=== PATIENT | female | born 1970 | race Caucasian/White ===

== ENCOUNTER 2017-05-17 14:03 | Observation (INO) | payer BC ==
[2017-05-17 14:14] VITALS: BMI 28.1
[2017-05-17] MEDS ORDERED: IBUPROFEN 600 MG TABLET (FP) PO ONE ×2 (14:47→14:57)
[2017-05-17 15:36] LABS: BASO # 0.1 # (0.1-1); BASO % 0.9 % (0-2.0); EOS # 0.3 # (0-4.5); EOS % 3.4 % (0-4.5); LYMPH # 1.8 (8-40); MCH 23.4 pg (25.7-33.7); MCHC 32.1 g/dl (32.0-36.0); MEAN CELL VOLUME 72.9 fl (80-96); MEAN PLT VOLUME 7.8 fl (7.5-11.1); MONO # 0.8 # (3.8-10.2); NEUT # 4.9 # (42.8-82.8); NEUT % 62.5 % (42.8-82.8); PLATELET COUNT 433 K/MM3 (134-434); RDW 15.8 % (11.6-15.6); WHITE BLOOD COUNT 7.8 K/mm3 (4.0-10.0)
--- NOTE | 2017-05-17 15:44 | PDOC ---
History of Present Illness - General Chief Complaint: Chest Pain Stated Complaint: SENT BY PCP Time Seen by Provider: 05/17/17 14:28 - History of Present Illness Initial Comments: 05/17/17 15:33 "The patient is a 46 year old female, with no significant past medical history who was sent to the emergency department with chest pain and SOB since yesterday. The patient reports waking up with the onset of chest pain. She notes yesterday her pain was constant but now her pain is intermittent in nature. She reports her chest pain is often made worse on exertion. She notes having left arm heaviness and facial tingling. Denies any asymmetric leg swelling, denies recent travel/immobilization. She denies recent fevers, chills , or dizziness. She denies recent nausea, vomit, diarrhea or constipation. She denies recent dysuria, frequency, urgency or hematuria. Pt also endorse mild left sided headache that started today. Similar in character and severity to headaches she has had in the past. No thunderclap, no neck stiffness. No F/C. Allergies: NKA Past surgical history: None reported. Social history: Nonsmoker. Denies EtOH use and recreational drug use. Family history: Uncle [place] at 43, sister has stents. Past History - Past Medical History Allergies/Adverse Reactions: Allergies Allergy/AdvReac Type Severity Reaction Status Date / Time No Known Allergies Allergy Verified 05/17/17 14:14 Home Medications: Ambulatory Orders Ibuprofen [Motrin -] 600 mg PO TID PRN #30 tablet 03/24/13 Levothyroxine [Synthroid -] 175 mcg PO DAILY 03/24/13 COPD: No Thyroid Disease: Yes (HYPOTHROIDISM) - Suicide/Smoking/Psychosocial Hx Smoking Status: No Smoking History: Former smoker Have you smoked in the past 12 months: No Number of Cigarettes Smoked Daily: 0 If you are a former smoker, when did you quit?: 10 YEARS AGO Information on smoking cessation initiated: No Hx Alcohol Use: No Drug/Substance Use Hx: No Review of Systems - Review of Systems Comments:: 05/17/17 15:44 "GENERAL/CONSTITUTIONAL: No fever or chills. No weakness. HEAD, EYES, EARS, NOSE AND THROAT: No change in vision. No ear pain or discharge. No sore throat. CARDIOVASCULAR: +chest pain and shortness of breath. RESPIRATORY: No cough, wheezing, or hemoptysis. GASTROINTESTINAL: No nausea, vomiting, diarrhea or constipation. GENITOURINARY: No dysuria, frequency, or change in urination. MUSCULOSKELETAL: No joint or muscle swelling or pain. No neck or back pain. SKIN: No rash NEUROLOGIC: +headache No vertigo, loss of consciousness, or change in strength/ sensation. ENDOCRINE: No increased thirst. No abnormal weight change. HEMATOLOGIC/LYMPHATIC: No anemia, easy bleeding, or history of blood clots. ALLERGIC/IMMUNOLOGIC: No hives or skin allergy. " *Physical Exam - Vital Signs Last Vital Signs Temp Pulse Resp BP Pulse Ox 98.8 F 74 147/92 100 05/17/17 14:11 05/17/17 14:11 05/17/17 14:11 05/17/17 14:11 - Physical Exam Comments: 05/17/17 15:45 "GENERAL: Awake, alert, and fully oriented, in no acute distress HEAD: No signs of trauma EYES: PERRLA, EOMI, sclera anicteric, conjunctiva clear ENT: Auricles normal inspection, hearing grossly normal, nares patent, oropharynx clear without exudates. Moist mucosa NECK: Nontender, no stepoffs, Normal ROM, supple, no lymphadenopathy, JVD, or masses LUNGS: Breath sounds equal, clear to auscultation bilaterally. No wheezes, and no crackles HEART: Regular rate and rhythm, normal S1 and S2, no murmurs, rubs or gallops ABDOMEN: Soft, nontender, normoactive bowel sounds. No guarding, no rebound. No masses EXTREMITIES: Normal range of motion, no edema. No clubbing or cyanosis. No cords , erythema, or tenderness NEUROLOGICAL: Cranial nerves II through XII intact. 5/5 strength and sensation in all extremities, Normal speech, normal gait SKIN: Warm, Dry, normal turgor, no rashes or lesions noted. " Heart Score/ECG Review - History History: Moderately suspicious - Electrocardiogram EKG: Normal - Age Age: </= 45 - Risk Factors Risk Factors Heart Score: Yes Positive family hx of cardiac disease Based on the list above the patient has:: 1-2 risk factors - Troponin Troponin: </= normal limit - Score Heart Score - Total: 2 - ECG Impressions Comment:: 05/17/17 15:45 NSR, no JANNET/STDs, no TWIs, axis wnl, intervals wnl, rate 74 ED Treatment Course - LABORATORY CBC & Chemistry Diagram: 05/17/17 15:20 05/17/17 15:20 - ADDITIONAL ORDERS Additional order review: Laboratory Results 05/17/17 05/17/17 05/17/17 15:20 15:20 15:20 Sodium 138 Potassium 4.3 Chloride 104 Carbon Dioxide 27 Anion Gap 7 L BUN 10 Creatinine 0.7 Creat Clearance w eGFR > 60 Random Glucose 85 Calcium 8.2 L Total Bilirubin 0.2 AST 14 L ALT 23 Alkaline Phosphatase 88 Creatine Kinase 68 Troponin I < 0.02 B-Natriuretic Peptide 35.07 Total Protein 7.4 Albumin 3.6 Urine HCG, Qual Negative 05/17/17 15:20 Sodium Potassium Chloride Carbon Dioxide Anion Gap BUN Creatinine Creat Clearance w eGFR Random Glucose Calcium Total Bilirubin AST ALT Alkaline Phosphatase Creatine Kinase Cancelled Troponin I Cancelled B-Natriuretic Peptide Total Protein Albumin Urine HCG, Qual 05/17/17 15:20 RBC 4.47 MCV 72.9 L MCHC 32.1 RDW 15.8 H MPV 7.8 Neutrophils % 62.5 Lymphocytes % 22.7 Monocytes % 10.5 H Eosinophils % 3.4 Basophils % 0.9 - RADIOLOGY Radiology Studies Ordered: Category Date Time Status CHEST PA & LAT [RAD] Stat Radiology 05/17/17 14:42 Completed - Medications Given in the ED: ED Medications Discontinued Medications Generic Name Dose Route Start Last Admin Trade Name Freq PRN Reason Stop Dose Admin Ibuprofen 600 mg 05/17/17 14:47 05/17/17 15:19 Motrin - PO 05/17/17 14:48 600 mg ONCE ONE Administration Medical Decision Making - Medical Decision Making 05/17/17 15:46 46 F with exertional CP and SOB x 2 days. Concerning for ACS given exertional nature and pt's family history of CAD. However, pt has no other risk factors and normal EKG. HEART score is 3. Pt does not have any PE risk factors, PERC score 0. - Labs, trop x 2 - CXR - Motrin for headache 05/17/17 18:[address] Ngo, manager of transportation who sent pt in today. Given pt's significant family history, she recommends admission for stress testing tomorrow. *DC/Admit/Observation/Transfer Diagnosis at time of Disposition: Chest pain - Discharge Dispostion Admit: Yes - Referrals - Patient Instructions - Post Discharge Activity - Attestations Physician Attestion: 05/17/17 18:57 I, Dr. Joey Corea MD, attest that this document has been prepared under my direction and personally reviewed by me in its entirety. I further attest, that it accurately reflects all work, treatment, procedures and medical decision -making performed by me.
[2017-05-17 16:09] LABS: ALBUMIN 3.6 g/dl (3.4-5.0); ANION GAP 7 (8-16); BILIRUBIN,TOTAL 0.2 mg/dL (0.2-1.0); CALCIUM 8.2 mg/dL (8.5-10.1); CO2 27 mmol/L (21-32); CREATININE 0.7 mg/dL (0.55-1.02); GLUCOSE,RANDOM 85 mg/dL (74-106); SGOT/AST 14 U/L (15-37); SGPT/ALT 23 U/L (12-78); TOT PROT 7.4 g/dl (6.4-8.2)
[2017-05-17 16:11] LABS: ALK PHOS 88 U/L (45-117); CPK 68 IU/L (26-192); TROPONIN I < 0.02 ng/ml (0.00-0.05)
--- NOTE | 2017-05-17 19:24 | HP ---
CHIEF COMPLAINT: " Chest pain" PCP: Looking for a new PCP President & Founder: Dr. Chandler Cnc Field Service Engineer: Dr. Ngo. HISTORY OF PRESENT ILLNESS: Patient is a 46 year old female sent from Dr. Ngo's office after she complained of chest pain. Patient also has extensive family cardiac history hence was sent to the ED for further evaluation. As per the patient, she was apparently well until 2 days ago. She suddenly started to develop chest pain, located in the left side, constant pressure type feeling all day yesterday and on/off today, radiating towards the neck, 6/10 in intensity. Patient also reports to have noticed left arm heaviness, associated with palpitation. This is her first episode of chest pain. Denies nausea, vomiting, fever, chills, rigors, sweating, any trauma, abdominal pain. Bowel/Bladder habit normal. Sleep/Appetite normal. ER course was notable for: (1) Afebrile, hypertensive, troponin x 1 negative, anemia, (2) EKG: Normal Sinus (3) Motrin 600mg once Recent Travel: None MENTRUAL HISTORY: LMP 05/15/2017, regular, lasting for 4-5 days, uses 3-4 tampons/day. PAST MEDICAL HISTORY: Hypothyroidism PAST SURGICAL HISTORY: None Social History: Smoking: Former smoker, stopped smoking 10 yrs ago, smoked 1 pack for 15 years Alcohol: Occasional Drugs: Denies Family History: Mother- CAD s/p stent at age 50 yrs; HTN, DM; Father-HTN, DM; Aunt-Stroke at age 44 and Uncle of [place] at age 43. Allergies No Known Allergies Allergy (Verified 05/17/17 14:14) HOME MEDICATIONS: Home Medications Medication Instructions Recorded Ibuprofen [Motrin -] 600 mg PO TID PRN #30 tablet 03/24/13 Levothyroxine [Synthroid -] 175 mcg PO DAILY 03/24/13 REVIEW OF SYSTEMS CONSTITUTIONAL: Absent: fever, chills, diaphoresis, generalized weakness, malaise, loss of appetite, weight change HEENT: Absent: rhinorrhea, nasal congestion, throat pain, throat swelling, difficulty swallowing, mouth swelling, ear pain, eye pain, visual changes CARDIOVASCULAR: Present: Chest pain, palpitations. Absent: syncope, irregular heart rate, lightheadedness, peripheral edema RESPIRATORY: Absent: cough, shortness of breath, dyspnea with exertion, orthopnea, wheezing, stridor, hemoptysis GASTROINTESTINAL: Absent: abdominal pain, abdominal distension, nausea, vomiting, diarrhea, constipation, melena, hematochezia GENITOURINARY: Absent: dysuria, frequency, urgency, hesitancy, hematuria, flank pain, genital pain MUSCULOSKELETAL: Absent: myalgia, arthralgia, joint swelling, back pain, neck pain SKIN: Absent: rash, itching, pallor HEMATOLOGIC/IMMUNOLOGIC: Absent: easy bleeding, easy bruising, lymphadenopathy, frequent infections ENDOCRINE: Absent: unexplained weight gain, unexplained weight loss, heat intolerance, cold intolerance NEUROLOGIC: Absent: headache, focal weakness or paresthesias, dizziness, unsteady gait, seizure, mental status changes, bladder or bowel incontinence PSYCHIATRIC: Absent: anxiety, depression, suicidal or homicidal ideation, hallucinations. PHYSICAL EXAMINATION Vital Signs - 24 hr 05/17/17 14:11 Temperature 98.8 F Pulse Rate 74 Blood Pressure 147/92 O2 Sat by Pulse 100 Oximetry (%) GENERAL: Young female, comfortably sitting in bed, Awake, alert, and fully oriented, in no acute distress. HEAD: Normal with no signs of trauma. EYES: EOM intact, no pallor or icterus. EARS, NOSE, THROAT: Ears normal. Moist mucous membranes. NECK: Normal range of motion, supple without lymphadenopathy, JVD, or masses. LUNGS: Breath sounds equal, clear to auscultation bilaterally. No wheezes, and no crackles. No accessory muscle use. Chest: No rashes, pain non reproducible. HEART: Regular rate and rhythm, normal S1 and S2 without murmur. ABDOMEN: Soft, nontender, not distended, normoactive bowel sounds, no guarding, no rebound, no masses. No hepatomegaly or splenomegaly. MUSCULOSKELETAL: Normal range of motion at all joints. No bony deformities or tenderness. No CVA tenderness. UPPER EXTREMITIES: 2+ pulses, warm, well-perfused. No cyanosis. No clubbing. No peripheral edema. LOWER EXTREMITIES: 2+ pulses, warm, well-perfused. No calf tenderness. Trace edema bilaterally. NEUROLOGICAL: No facial droop, power 5/5 in all extremities. Cranial nerves II- XII intact. Normal speech. Gait not observed. PSYCHIATRIC: Cooperative. Good eye contact. Appropriate mood and affect. SKIN: Warm, dry, normal turgor, no rashes or lesions noted, normal capillary refill. Laboratory Results - last 24 hr 05/17/17 05/17/17 05/17/17 15:20 15:20 15:20 WBC 7.8 RBC 4.47 Hgb 10.5 L Hct 32.6 MCV 72.9 L MCH 23.4 L MCHC 32.1 RDW 15.8 H Plt Count 433 MPV 7.8 Absolute Neuts (auto) 4.9 L Absolute Lymphs (auto) 1.8 L Absolute Monos (auto) 0.8 L Absolute Eos (auto) 0.3 Absolute Basos (auto) 0.1 Neutrophils % 62.5 Lymphocytes % 22.7 Monocytes % 10.5 H Eosinophils % 3.4 Basophils % 0.9 Sodium 138 Potassium 4.3 Chloride 104 Carbon Dioxide 27 Anion Gap 7 L BUN 10 Creatinine 0.7 Creat Clearance w eGFR > 60 Random Glucose 85 Calcium 8.2 L Total Bilirubin 0.2 AST 14 L ALT 23 Alkaline Phosphatase 88 Creatine Kinase Cancelled 68 Troponin I Cancelled < 0.02 B-Natriuretic Peptide Total Protein 7.4 Albumin 3.6 Urine HCG, Qual 05/17/17 05/17/17 15:20 15:20 WBC RBC Hgb Hct MCV MCH MCHC RDW Plt Count MPV Absolute Neuts (auto) Absolute Lymphs (auto) Absolute Monos (auto) Absolute Eos (auto) Absolute Basos (auto) Neutrophils % Lymphocytes % Monocytes % Eosinophils % Basophils % Sodium Potassium Chloride Carbon Dioxide Anion Gap BUN Creatinine Creat Clearance w eGFR Random Glucose Calcium Total Bilirubin AST ALT Alkaline Phosphatase Creatine Kinase Troponin I B-Natriuretic Peptide 35.07 Total Protein Albumin Urine HCG, Qual Negative ASSESSMENT/PLAN: Patient is a 46 year old female with history of hypothyroidism sent from Dr. Ngo's office after she complained of chest pain. # Chest pain-R/o ACS Has extensive family cardiac history, c/o chest pain x 2 days, pressure type , left arm heaviness, chest pain radiating to the neck EKG: No ST or T wave changes Troponin x 1 negative. Next set of troponin ordered after 6 hrs @ 9:20pm. Stress test in am NPO after midnight IV NS @ 100mls/hr after midnight Echo in am Carotid doppler D-dimer A1c and Lipid profile in am # Hypothyroidism Continue levothyroxine 175 mcg # Microcytic anemia Hb: 10.5 with MCV 72.9 Iron profile ordered for am No signs of active bleeding at this time. # Hypertension Not on any medication Diet control and exercise # FEN IV NS @ 100 mls/hr after midnight Electrolytes WNL NPO after midnight # Prophylaxis For GI: Not indicated For DVT: On Heparin 5000 IU sq TID # Code Status: Full code Illness, Investigation and Plan of care explained to the patient. She verbalized understanding. Case discussed with Dr. Fraser. Visit type - Emergency Visit Emergency Visit: Yes ED Registration Date: 05/17/17 Care time: The patient presented to the Emergency Department on the above date and was hospitalized for further evaluation of their emergent condition. - New Patient This patient is new to me today: Yes Date on this admission: 05/17/17 - Critical Care Critical Care patient: No
--- NOTE | 2017-05-17 20:27 | PN ---
Teaching Attending Note Name of Resident: Zena Contreras ATTENDING PHYSICIAN STATEMENT I saw and evaluated the patient. I reviewed the resident's note and discussed the case with the resident. I agree with the resident's findings and plan as documented. SUBJECTIVE: Patient is a 46yo female presented to ED for having chest pain presented upon awakening and continued the whole day. Denies any fever or chills, no shortness of breath. OBJECTIVE: Vital Signs Temperature 98.2 F 05/17/17 20:23 Pulse Rate 78 05/17/17 20:23 Respiratory Rate 19 05/17/17 20:23 Blood Pressure 129/86 05/17/17 20:23 O2 Sat by Pulse Oximetry (%) 100 05/17/17 14:11 CBCD WBC 7.8 K/mm3 (4.0-10.0) 05/17/17 15:20 RBC 4.47 M/mm3 (3.60-5.2) 05/17/17 15:20 Hgb 10.5 GM/dL (10.7-15.3) L 05/17/17 15:20 Hct 32.6 % (32.4-45.2) 05/17/17 15:20 MCV 72.9 fl (80-96) L 05/17/17 15:20 MCHC 32.1 g/dl (32.0-36.0) 05/17/17 15:20 RDW 15.8 % (11.6-15.6) H 05/17/17 15:20 Plt Count 433 K/MM3 (134-434) 05/17/17 15:20 MPV 7.8 fl (7.5-11.1) 05/17/17 15:20 CMP Sodium 138 mmol/L (136-145) 05/17/17 15:20 Potassium 4.3 mmol/L (3.5-5.1) 05/17/17 15:20 Chloride 104 mmol/L (98-107) 05/17/17 15:20 Carbon Dioxide 27 mmol/L (21-32) 05/17/17 15:20 Anion Gap 7 (8-16) L 05/17/17 15:20 BUN 10 mg/dL (7-18) 05/17/17 15:20 Creatinine 0.7 mg/dL (0.55-1.02) 05/17/17 15:20 Creat Clearance w eGFR > 60 (>60) 05/17/17 15:20 Random Glucose 85 mg/dL (74-106) 05/17/17 15:20 Calcium 8.2 mg/dL (8.5-10.1) L 05/17/17 15:20 Total Bilirubin 0.2 mg/dL (0.2-1.0) 05/17/17 15:20 AST 14 U/L (15-37) L 05/17/17 15:20 ALT 23 U/L (12-78) 05/17/17 15:20 Alkaline Phosphatase 88 U/L (45-117) 05/17/17 15:20 Total Protein 7.4 g/dl (6.4-8.2) 05/17/17 15:20 Albumin 3.6 g/dl (3.4-5.0) 05/17/17 15:20 CARDIAC ENZYMES Creatine Kinase 68 IU/L (26-192) 05/17/17 15:20 Troponin I < 0.02 ng/ml (0.00-0.05) 05/17/17 15:20 Current Medications Generic Name Dose Route Start Last Admin Trade Name Freq PRN Reason Stop Dose Admin Heparin Sodium (Porcine) 5,000 unit 05/18/17 06:00 Heparin - SQ TID [facility] Sodium Chloride 1,000 mls @ 100 mls/hr 05/18/17 00:01 Normal Saline - IV ASDIR [facility] Levothyroxine Sodium 175 mcg 05/18/17 07:00 Synthroid - PO DAILY@0700 [facility] Home Medications Medication Instructions Recorded Ibuprofen [Motrin -] 600 mg PO TID PRN #30 tablet 03/24/13 Levothyroxine [Synthroid -] 175 mcg PO DAILY 03/24/13 Laboratory Tests 05/17/17 15:20 Troponin I < 0.02 PE; per resident's note ASSESSMENT AND PLAN: Patient is a 46 year old female with history of hypothyroidism sent from Dr. Ngo's office after she complained of chest pain. # Acute cp r/o [place] , patient has extensive Hx of CAD, troponin q6 x3 sets, EKG in am, Stress test in am, for consult. NPO. echo in am. IVF at 100cc/hr , Lipid profile in am # Hx of Hypothyroidism continue synthroid 175mcg DVT px: Heparn sq Patient will go [employer] [facility] [employer]s service.
--- NOTE | 2017-05-17 21:23 | CON.CARD ---
Cardiology Consult (text) - Consultation Consultation Note: CC: CP 46 yo with pmhx of hypthyroid and family hx of hypercoaguability and premature cad p/w cp patient woke up with discomfort yesterday. constant heaviness in chest all day with radiation of heaviness/tingling sensation to left arm. Resolved last night and today began again (this time intermittent, triggered by exertion or deep breath). Not positional. No ttp. today also associated with dyspnea with minimal exertion. (walking to car) progressive decline in functional capacity: has limiting dai after 2 flights. could walk up 3 flights 3 months ago. no palps, dizziness, le edema, orthopnea, bleeding . pmd: Dr. Praod/Chayito Chandra cardilogist: Dr. 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 Mother with stent at 50 (did not have anti-cardiolipin syndrome). uncle with fatal [place] 44. Sister with htn diagnosed in mid 40's ros: per hpi. no f/c/s, n/v/d, cough, congestion. rashes, visual disturances. + h/a Ambulatory Orders Ibuprofen [Motrin -] 600 mg PO TID PRN #30 tablet 03/24/13 Levothyroxine [Synthroid -] 175 mcg PO DAILY 03/24/13 Current Medications Heparin Sodium (Porcine) (Heparin -) 5,000 unit SQ TID [facility] Sodium Chloride (Normal Saline -) 1,000 mls @ 100 mls/hr IV ASDIR [facility] Levothyroxine Sodium (Synthroid -) 175 mcg PO DAILY@0700 [facility] Vital Signs - 24 hr 05/17/17 05/17/17 14:11 20:23 Temperature 98.8 F 98.2 F Pulse Rate 74 Pulse Rate [ 78 Right Radial] Respiratory 19 Rate Blood Pressure 147/92 Blood Pressure 129/86 [Left Arm] O2 Sat by Pulse 100 Oximetry (%) Intake & Output 05/15/17 05/16/17 05/17/17 05/18/17 07:59 07:59 07:59 07:59 Weight 154 lb nad, calm jvd flat, neck supple ctab, nl effort rrr nl s1, s2 no mrg + bs soft nt nd ext with trace edema. no c/c no carotid bruits + dp/pt aaox3 no jaundice, diaphoresis. CBC, BMP 05/17/17 15:20 05/17/17 15:20 46 yo with pmhx of hypthyroid and family hx of hypercoaguability and premature cad p/w cp CP - exertional cp with family h/o premature cad. JG. Plan for stress testing and echocaridogram in the morning. - d dimer to r/o PE. - need for asa, statin pending further work up. paresthesia with family h/o early CVA 2/2 hypercoaguability - carotid u/s. will defer to pmd regarding whether sx's are concerning for neurologic etiology - tsh - monitor bp. anemia - new dx. eval/mgm't per pmd.
[2017-05-17 22:52] LABS: CPK 59 IU/L (26-192); THYROID STIMULATING HORMONE 1.21 uIU/ml (0.358-3.74); TROPONIN I < 0.02 ng/ml (0.00-0.05)
[2017-05-18] MEDS ORDERED: SODIUM CHLORIDE 1,000 ML IV SCH (00:01)
[2017-05-18] MEDS ORDERED: HEPARIN NA (PORCINE) 5,000 UNITS/ML 1ML VIAL ONE (06:12)
[2017-05-18] MEDS ORDERED: LEVOTHYROXINE NA 25 MCG TABLET (FP) ONE (06:12)
[2017-05-18] MEDS: HEPARIN NA (PORCINE) 5,000 UNITS/ML 1ML VIAL SQ SCH ×2 (06:29→16:01)
[2017-05-18] MEDS ORDERED: LEVOTHYROXINE NA 175 MCG TABLET PO SCH (07:00)
[2017-05-18 08:05] LABS: BASO # 0.1 # (0.1-1); BASO % 1.2 % (0-2.0); EOS # 0.4 # (0-4.5); EOS % 6.3 % (0-4.5); LYMPH # 1.6 (8-40); MCH 23.1 pg (25.7-33.7); MCHC 31.4 g/dl (32.0-36.0); MEAN CELL VOLUME 73.4 fl (80-96); MEAN PLT VOLUME 7.8 fl (7.5-11.1); MONO # 0.8 # (3.8-10.2); NEUT # 3.6 # (42.8-82.8); PLATELET COUNT 409 K/MM3 (134-434); RDW 15.8 % (11.6-15.6); WHITE BLOOD COUNT 6.4 K/mm3 (4.0-10.0)
[2017-05-18 08:27] LABS: ALBUMIN 3.4 g/dl (3.4-5.0); ANION GAP 7 (8-16); CALCIUM 8.1 mg/dL (8.5-10.1); CHOLESTEROL 175 mg/dL (50-200); CO2 27 mmol/L (21-32); CREATININE 0.7 mg/dL (0.55-1.02); GLUCOSE,RANDOM 90 mg/dL (74-106); SGOT/AST 11 U/L (15-37); SGPT/ALT 22 U/L (12-78)
[2017-05-18 08:29] LABS: ALK PHOS 89 U/L (45-117); BILIRUBIN,TOTAL 0.3 mg/dL (0.2-1.0)
--- NOTE | 2017-05-18 13:04 | PN ---
Physical Exam: SUBJECTIVE: Patient seen and examined OBJECTIVE: Vital Signs Period Temp Pulse Resp BP Sys/Banks Pulse Ox Last 24 Hr 97.5 F-98.8 F 70-78 14-19 129-147/66-92 100 GENERAL: The patient is awake, alert, and fully oriented, in no acute distress. HEAD: Normal with no signs of trauma. EYES: PERRL, extraocular movements intact, sclera anicteric, conjunctiva clear. No ptosis. ENT: Ears normal, nares patent, oropharynx clear without exudates, moist mucous membranes. NECK: Trachea midline, full range of motion, supple. LUNGS: Breath sounds equal, clear to auscultation bilaterally, no wheezes, no crackles, no accessory muscle use. HEART: Regular rate and rhythm, S1, S2 without murmur, rub or gallop. ABDOMEN: Soft, nontender, nondistended, normoactive bowel sounds, no guarding, no rebound, no hepatosplenomegaly, no masses. EXTREMITIES: 2+ pulses, warm, well-perfused, no edema. NEUROLOGICAL: Cranial nerves II through XII grossly intact. Normal speech, gait not observed. PSYCH: Normal mood, normal affect. SKIN: Warm, dry, normal turgor, no rashes or lesions noted Laboratory Results - last 24 hr 05/17/17 05/17/17 05/17/17 15:20 15:20 15:20 WBC 7.8 RBC 4.47 Hgb 10.5 L Hct 32.6 MCV 72.9 L MCH 23.4 L MCHC 32.1 RDW 15.8 H Plt Count 433 MPV 7.8 Absolute Neuts (auto) 4.9 L Absolute Lymphs (auto) 1.8 L Absolute Monos (auto) 0.8 L Absolute Eos (auto) 0.3 Absolute Basos (auto) 0.1 Neutrophils % 62.5 Lymphocytes % 22.7 Monocytes % 10.5 H Eosinophils % 3.4 Basophils % 0.9 Sodium 138 Potassium 4.3 Chloride 104 Carbon Dioxide 27 Anion Gap 7 L BUN 10 Creatinine 0.7 Creat Clearance w eGFR > 60 Random Glucose 85 Hemoglobin A1c % Calcium 8.2 L Total Bilirubin 0.2 AST 14 L ALT 23 Alkaline Phosphatase 88 Creatine Kinase Cancelled 68 Troponin I Cancelled < 0.02 B-Natriuretic Peptide Total Protein 7.4 Albumin 3.6 Triglycerides Cholesterol Total LDL Cholesterol HDL Cholesterol TSH Urine HCG, Qual 05/17/17 05/17/17 05/17/17 15:20 15:20 21:54 WBC RBC Hgb Hct MCV MCH MCHC RDW Plt Count MPV Absolute Neuts (auto) Absolute Lymphs (auto) Absolute Monos (auto) Absolute Eos (auto) Absolute Basos (auto) Neutrophils % Lymphocytes % Monocytes % Eosinophils % Basophils % Sodium Potassium Chloride Carbon Dioxide Anion Gap BUN Creatinine Creat Clearance w eGFR Random Glucose Hemoglobin A1c % Calcium Total Bilirubin AST ALT Alkaline Phosphatase Creatine Kinase 59 Troponin I < 0.02 B-Natriuretic Peptide 35.07 Total Protein Albumin Triglycerides Cholesterol Total LDL Cholesterol HDL Cholesterol TSH 1.21 Urine HCG, Qual Negative 05/18/17 05/18/17 05/18/17 07:34 07:34 07:34 WBC 6.4 RBC 4.47 Hgb 10.3 L Hct 32.8 MCV 73.4 L MCH 23.1 L MCHC 31.4 L RDW 15.8 H Plt Count 409 MPV 7.8 Absolute Neuts (auto) 3.6 L Absolute Lymphs (auto) 1.6 L Absolute Monos (auto) 0.8 L Absolute Eos (auto) 0.4 Absolute Basos (auto) 0.1 Neutrophils % 56.0 Lymphocytes % 24.5 Monocytes % 12.0 H Eosinophils % 6.3 H D Basophils % 1.2 Sodium 139 Potassium 4.4 Chloride 105 Carbon Dioxide 27 Anion Gap 7 L BUN 11 Creatinine 0.7 Creat Clearance w eGFR > 60 Random Glucose 90 Hemoglobin A1c % 6.0 Calcium 8.1 L Total Bilirubin 0.3 D AST 11 L D ALT 22 Alkaline Phosphatase 89 Creatine Kinase Troponin I B-Natriuretic Peptide Total Protein 7.0 Albumin 3.4 Triglycerides 47 Cholesterol 175 Total LDL Cholesterol 114 H HDL Cholesterol 53 TSH Urine HCG, Qual Active Medications Generic Name Dose Route Start Last Admin Trade Name Freq PRN Reason Stop Dose Admin Heparin Sodium (Porcine) 5,000 unit 05/18/17 06:00 05/18/17 06:29 Heparin - SQ 5,000 unit TID [facility] Administration Levothyroxine Sodium 175 mcg 05/18/17 07:00 05/18/17 06:29 Synthroid - PO 175 mcg DAILY@0700 [facility] Administration ASSESSMENT/PLAN:
--- NOTE | 2017-05-18 13:29 | PN ---
Progress Note (short form) - Note Progress Note: CC: CP Current Medications Heparin Sodium (Porcine) (Heparin -) 5,000 unit SQ TID [facility] Last Admin: 05/18/17 06:29 Dose: 5,000 unit Levothyroxine Sodium (Synthroid -) 175 mcg PO DAILY@0700 [facility] Last Admin: 05/18/17 06:29 Dose: 175 mcg Vital Signs - 24 hr 05/17/17 05/17/17 05/18/17 14:11 20:23 08:12 Temperature 98.8 F 98.2 F 97.5 F L Pulse Rate 74 Pulse Rate [ 78 70 Right Radial] Respiratory 19 14 Rate Blood Pressure 147/92 Blood Pressure 129/86 [Left Arm] Blood Pressure 129/66 [Right Arm] O2 Sat by Pulse 100 Oximetry (%) Intake & Output 05/16/17 05/17/17 05/18/17 05/19/17 07:59 07:59 07:59 07:59 Weight 154 lb nad, calm jvd flat, neck supple ctab, nl effort rrr nl s1, s2 no mrg + bs soft nt nd ext with trace edema. no c/c no carotid bruits + dp/pt aaox3 no jaundice, diaphoresis. CBC, BMP 05/18/17 07:34 05/18/17 07:34 Laboratory Tests 05/17/17 05/17/17 05/18/17 15:20 21:54 07:34 Hemoglobin A1c % Total Bilirubin 0.3 D AST 11 L D ALT 22 Alkaline Phosphatase 89 Troponin I < 0.02 < 0.02 Triglycerides 47 Cholesterol 175 Total LDL Cholesterol 114 H HDL Cholesterol 53 TSH 1.21 05/18/17 07:34 Hemoglobin A1c % 6.0 Total Bilirubin AST ALT Alkaline Phosphatase Troponin I Triglycerides Cholesterol Total LDL Cholesterol HDL Cholesterol TSH ekg wnl stress test: echo: nl lv/rv. 1+ mr. carotid u/s: no stenosis. cxr: wnl. 46 yo with pmhx of hypthyroid and family hx of hypercoaguability and premature cad p/w cp CP - exertional cp with family h/o premature cad. JG. Plan for stress testing and echocaridogram in the morning. - d dimer to r/o PE pending. - need for asa, statin pending further work up. paresthesia with family h/o early CVA 2/2 hypercoaguability - carotid u/s wnl. will defer to pmd regarding whether sx's are concerning for neurologic etiology - tsh wnl - bp controlled off anti-hypertensives. anemia - new dx. eval/mgm't per pmd.
--- NOTE | 2017-05-18 13:51 | EKG ---
Test Reason : Blood Pressure : / mmHG Vent. Rate : 074 BPM Atrial Rate : 074 BPM P-R Int : 128 ms QRS Dur : 082 ms QT Int : 386 ms P-R-T Axes : 039 014 021 degrees QTc Int : 428 ms NORMAL SINUS RHYTHM NORMAL ECG NO PREVIOUS ECGS AVAILABLE Confirmed by TAM CERRATO MD ([id number]) on 05/18/2017 1:51:24 PM Referred By: Confirmed By:TAM CERRATO MD
[2017-05-18] MEDS ORDERED: IBUPROFEN 200 MG TABLET PO ONE (15:14)
--- NOTE | 2017-05-18 15:20 | PN ---
Teaching Attending Note Name of Resident: Kennedy Talavera ATTENDING PHYSICIAN STATEMENT I saw and evaluated the patient. I reviewed the resident's note and discussed the case with the resident. I agree with the resident's findings and plan as documented. SUBJECTIVE: Patient seen and examined, Headache, had some yesterday that resolved with motrin. Otherwise asymptomatic. No chest pain, arm, neck or face symptoms. Eager to go home. OBJECTIVE: Vital Signs Period Temp Pulse Resp BP Sys/Banks Pulse Ox Last 24 Hr 97.5 F-98.2 F 70-78 14- 129-129/66-86 Intake & Output 05/15/17 05/16/17 05/17/17 05/18/17 23:59 23:59 23:59 23:59 Weight 154 lb General: sitting in bed in no acute distress CVS:S1S2 regular Chest: CTAB, no rales or wheezing abdomen: soft, NT, ND extremities: no edema Home Medication List Medication Instructions Recorded Confirmed Type Levothyroxine [Synthroid -] 175 mcg PO DAILY 03/24/13 05/17/17 History Active Medications Generic Name Dose Route Start Last Admin Trade Name Mary Grace PRN Reason Stop Dose Admin Heparin Sodium (Porcine) 5,000 unit 05/18/17 06:00 05/18/17 06:29 Heparin - SQ 5,000 unit TID [facility] Administration Levothyroxine Sodium 175 mcg 05/18/17 07:00 05/18/17 06:29 Synthroid - PO 175 mcg DAILY@0700 [facility] Administration Laboratory Results - last 24 hr 05/17/17 05/17/17 05/17/17 14:08 15:20 15:20 WBC 7.8 RBC 4.47 Hgb 10.5 L Hct 32.6 MCV 72.9 L MCH 23.4 L MCHC 32.1 RDW 15.8 H Plt Count 433 MPV 7.8 Absolute Neuts (auto) 4.9 L Absolute Lymphs (auto) 1.8 L Absolute Monos (auto) 0.8 L Absolute Eos (auto) 0.3 Absolute Basos (auto) 0.1 Neutrophils % 62.5 Lymphocytes % 22.7 Monocytes % 10.5 H Eosinophils % 3.4 Basophils % 0.9 D-Dimer 213 Sodium Potassium Chloride Carbon Dioxide Anion Gap BUN Creatinine Creat Clearance w eGFR Random Glucose Hemoglobin A1c % Calcium Total Bilirubin AST ALT Alkaline Phosphatase Creatine Kinase Cancelled Troponin I Cancelled B-Natriuretic Peptide Total Protein Albumin Triglycerides Cholesterol Total LDL Cholesterol HDL Cholesterol TSH Urine HCG, Qual 05/17/17 05/17/17 05/17/17 15:20 15:20 15:20 WBC RBC Hgb Hct MCV MCH MCHC RDW Plt Count MPV Absolute Neuts (auto) Absolute Lymphs (auto) Absolute Monos (auto) Absolute Eos (auto) Absolute Basos (auto) Neutrophils % Lymphocytes % Monocytes % Eosinophils % Basophils % D-Dimer Sodium 138 Potassium 4.3 Chloride 104 Carbon Dioxide 27 Anion Gap 7 L BUN 10 Creatinine 0.7 Creat Clearance w eGFR > 60 Random Glucose 85 Hemoglobin A1c % Calcium 8.2 L Total Bilirubin 0.2 AST 14 L ALT 23 Alkaline Phosphatase 88 Creatine Kinase 68 Troponin I < 0.02 B-Natriuretic Peptide 35.07 Total Protein 7.4 Albumin 3.6 Triglycerides Cholesterol Total LDL Cholesterol HDL Cholesterol TSH Urine HCG, Qual Negative 05/17/17 05/18/17 05/18/17 21:54 07:34 07:34 WBC 6.4 RBC 4.47 Hgb 10.3 L Hct 32.8 MCV 73.4 L MCH 23.1 L MCHC 31.4 L RDW 15.8 H Plt Count 409 MPV 7.8 Absolute Neuts (auto) 3.6 L Absolute Lymphs (auto) 1.6 L Absolute Monos (auto) 0.8 L Absolute Eos (auto) 0.4 Absolute Basos (auto) 0.1 Neutrophils % 56.0 Lymphocytes % 24.5 Monocytes % 12.0 H Eosinophils % 6.3 H D Basophils % 1.2 D-Dimer Sodium 139 Potassium 4.4 Chloride 105 Carbon Dioxide 27 Anion Gap 7 L BUN 11 Creatinine 0.7 Creat Clearance w eGFR > 60 Random Glucose 90 Hemoglobin A1c % Calcium 8.1 L Total Bilirubin 0.3 D AST 11 L D ALT 22 Alkaline Phosphatase 89 Creatine Kinase 59 Troponin I < 0.02 B-Natriuretic Peptide Total Protein 7.0 Albumin 3.4 Triglycerides 47 Cholesterol 175 Total LDL Cholesterol 114 H HDL Cholesterol 53 TSH 1.21 Urine HCG, Qual 05/18/17 07:34 WBC RBC Hgb Hct MCV MCH MCHC RDW Plt Count MPV Absolute Neuts (auto) Absolute Lymphs (auto) Absolute Monos (auto) Absolute Eos (auto) Absolute Basos (auto) Neutrophils % Lymphocytes % Monocytes % Eosinophils % Basophils % D-Dimer Sodium Potassium Chloride Carbon Dioxide Anion Gap BUN Creatinine Creat Clearance w eGFR Random Glucose Hemoglobin A1c % 6.0 Calcium Total Bilirubin AST ALT Alkaline Phosphatase Creatine Kinase Troponin I B-Natriuretic Peptide Total Protein Albumin Triglycerides Cholesterol Total LDL Cholesterol HDL Cholesterol TSH Urine HCG, Qual 2D echo and stress test reviewed with Dr. Ngo Carotid doppler reviewed ASSESSMENT AND PLAN: -Chest pain -Famhx of lupus anticoagulant Plan: asymptomatic. ACS ruled out, no EKG changes. 2D echo adn stress test neg. d-dimer neg. No hypoxia, tachycarida, pleuritic pain or new concerns. Discussed with Dr. Ngo, d/c home today with outpatient PCP follow up and with cardiology. PLan discussed with patient in detail, all questions answered.
[2017-05-18 15:50] VITALS: BP 121/78; PULSE 71; TEMP 97.4
--- NOTE | 2017-05-18 15:53 | DS ---
Physical Exam: SUBJECTIVE: No events noted overnight. Pt has had complete resolution of symptoms. OBJECTIVE: Vital Signs Period Temp Pulse Resp BP Sys/Banks Pulse Ox Last 24 Hr 97.4 F-98.2 F 70-78 14-19 121-129/66-86 PHYSICAL EXAM GENERAL: NAD, awake, alert, and fully oriented HEENT: EOMI, FABRICIO, no JVD, moist mucosa LUNGS: CTA bilaterally, no wheezes, rales, rhonchi. no accessory muscle use. HEART: RRR, S1, S2 without murmur, rub or gallop. ABDOMEN: Soft, nontender, nondistended, normoactive bowel sounds, no guarding EXTREMITIES: 2+ DP pulses, warm, well-perfused, no edema. NEUROLOGICAL: Nonfocal exam. Normal gait. Normal speech PSYCH: Normal mood, normal affect. SKIN: Warm, dry, no rashes or lesions noted. LABS Laboratory Results - last 24 hr 05/17/17 05/17/17 05/17/17 14:08 15:20 15:20 WBC RBC Hgb Hct MCV MCH MCHC RDW Plt Count MPV Absolute Neuts (auto) Absolute Lymphs (auto) Absolute Monos (auto) Absolute Eos (auto) Absolute Basos (auto) Neutrophils % Lymphocytes % Monocytes % Eosinophils % Basophils % D-Dimer 213 Sodium 138 Potassium 4.3 Chloride 104 Carbon Dioxide 27 Anion Gap 7 L BUN 10 Creatinine 0.7 Creat Clearance w eGFR > 60 Random Glucose 85 Hemoglobin A1c % Calcium 8.2 L Total Bilirubin 0.2 AST 14 L ALT 23 Alkaline Phosphatase 88 Creatine Kinase 68 Troponin I < 0.02 B-Natriuretic Peptide 35.07 Total Protein 7.4 Albumin 3.6 Triglycerides Cholesterol Total LDL Cholesterol HDL Cholesterol TSH 05/17/17 05/18/17 05/18/17 21:54 07:34 07:34 WBC 6.4 RBC 4.47 Hgb 10.3 L Hct 32.8 MCV 73.4 L MCH 23.1 L MCHC 31.4 L RDW 15.8 H Plt Count 409 MPV 7.8 Absolute Neuts (auto) 3.6 L Absolute Lymphs (auto) 1.6 L Absolute Monos (auto) 0.8 L Absolute Eos (auto) 0.4 Absolute Basos (auto) 0.1 Neutrophils % 56.0 Lymphocytes % 24.5 Monocytes % 12.0 H Eosinophils % 6.3 H D Basophils % 1.2 D-Dimer Sodium 139 Potassium 4.4 Chloride 105 Carbon Dioxide 27 Anion Gap 7 L BUN 11 Creatinine 0.7 Creat Clearance w eGFR > 60 Random Glucose 90 Hemoglobin A1c % Calcium 8.1 L Total Bilirubin 0.3 D AST 11 L D ALT 22 Alkaline Phosphatase 89 Creatine Kinase 59 Troponin I < 0.02 B-Natriuretic Peptide Total Protein 7.0 Albumin 3.4 Triglycerides 47 Cholesterol 175 Total LDL Cholesterol 114 H HDL Cholesterol 53 TSH 1.21 05/18/17 07:34 WBC RBC Hgb Hct MCV MCH MCHC RDW Plt Count MPV Absolute Neuts (auto) Absolute Lymphs (auto) Absolute Monos (auto) Absolute Eos (auto) Absolute Basos (auto) Neutrophils % Lymphocytes % Monocytes % Eosinophils % Basophils % D-Dimer Sodium Potassium Chloride Carbon Dioxide Anion Gap BUN Creatinine Creat Clearance w eGFR Random Glucose Hemoglobin A1c % 6.0 Calcium Total Bilirubin AST ALT Alkaline Phosphatase Creatine Kinase Troponin I B-Natriuretic Peptide Total Protein Albumin Triglycerides Cholesterol Total LDL Cholesterol HDL Cholesterol TSH HOSPITAL COURSE: Date of Admission:05/17/17 Date of Discharge: 05/18/17 Pt was placed in observation after being sent from Dr. Ngo's office after complaining of left sided, constant, chest pain described as pressure and radiating to the neck. Pt reports arm heaviness and associated palpitations and so was placed into observation due to her significant family history of cardiac disease. Pt had and EKG which showed normal sinus rhythm without any ST abnormalities. Troponins were drawn which were negative. Pt underwent carotid dopplers, echocardiogram, and a stress test with myocardial perfusion all revealing normal outcomes (as reported below). Pt also had iron studies drawn which are pending. Pt is being discharged with complete resolution of symptoms with instructions to follow-up with Dr. Sauceda and Dr. Ngo on an outpatient basis and to ask about her iron study outcomes. Imaging: Carotid Dopplers - No evidence of hemodynamically significant stenosis in common carotid arteries or cervical segment of internal carotids Echocardiogram - LV size and function normal; mild MR and TR; RV normal pressures Myocardial Perfusion - LVEF 69% with normal wall motion. No signs of transient ischemia seen Minutes to complete discharge: 35 Discharge Summary Reason For Visit: CHEST PAIN Current Active Problems Chest pain (Acute) Condition: Good - Instructions Diet, Activity, Other Instructions: You were hospitalized to rule out a problem with your heart. Currently your heart is working normally, however you should still follow with a vp publisher development. Please resume all medications as you have been prior to your hospital stay. If your symptoms return or worsen, please feel free to call your medical doctor or return to the ER for further evaluation. Follow-ups: Follow up with Dr. Sauceda; his office number will be provided in the discharge packet --You should ask about your iron study results which will be seen by Dr. Sauceda Follow up with Dr. Ngo on an outpatient basis. Referrals: Gricelda Ngo MD [Staff Physician] - Lavelle Sauceda MD [Staff Physician] - Disposition: HOME - Home Medications Comprehensive Discharge Medication List: Ambulatory Orders Ibuprofen [Motrin -] 600 mg PO TID PRN #30 tablet 03/24/13 Levothyroxine [Synthroid -] 175 mcg PO DAILY 03/24/13 This patient is new to me today: Yes Date on this admission: 05/18/17 Emergency Visit: No Critical Care patient: No - Discharge Referral Referred to [facility] No
[2017-05-19 06:06] LABS: SERUM IRON 25 ug/dL (27-159); TOTAL IRON BINDING CAPACITY 373 ug/dL (250-450); UIBC 348 ug/dL (131-425)
== END 2017-05-18 16:04 | disposition home or self-care (01) ==
LOC: JER 14:03 → JERBED 18:57
PROVIDERS: ADMIT Internal Medicine; ATTEND Hospitalist
DX: R07.9 Chest pain, unspecified (principal); E03.9 Hypothyroidism, unspecified; D50.9 Iron deficiency anemia, unspecified; I10 Essential (primary) hypertension; Z87.891 Personal history of nicotine dependence; R20.2 Paresthesia of skin; Z82.3 Family history of stroke
CPT/HCPCS: 36415; 71020-TC; 78452-TC; 80053; 80061; 82550; 82728; 83036; 83540; 83550; 83721; 83880; 84443; 84466; 84484; 84703; 85025; 85379; 93005; 93010; 93017; 93306-TC; 93880-TC; 99285-25; A9502; C1887; G0378; J1644

== ENCOUNTER 2018-12-21 22:08 | Emergency (ER) | payer BC ==
[2018-12-21 22:16] VITALS: BP 150/95; PULSE 78; TEMP 98.1; BMI 28.6
[2018-12-21] MEDS ORDERED: KETOROLAC TROMETHAMINE 60 MG/2 ML VIAL IM ONE (23:55)
[2018-12-21] MEDS ORDERED: KETOROLAC TROMETHAMINE 60 MG/2 ML VIAL ONE (23:57)
--- NOTE | 2018-12-22 00:29 | PDOC ---
Documentation entered by Omari Marcial SCRIBE, acting as scribe for Naomi Mancera MD. Naomi Mancera MD: This documentation has been prepared by the Aniket dunham Daniel, SCRIBE, under my direction and personally reviewed by me in its entirety. I confirm that the documentation accurately reflects all work, treatment, procedures, and medical decision making performed by me. History of Present Illness - General Chief Complaint: Pain, Acute Stated Complaint: LT GROIN/LEG PAIN History Source: Patient Exam Limitations: No Limitations - History of Present Illness Initial Comments: 12/21/18 23:16 The patient is a 48 year old female with a past medical history of hypothyroidism here today for evaluation of left groin pain. The patient reports that she was at work on sunday (12/18/18) when she began to feel left groin pain. She reports that the pain has been getting worse and now radiates down her whole leg. She denies any trauma. Allergies: NKA Social history: Confirms vape use. PCP: Fauzia Velazco Past History - Past Medical History Allergies/Adverse Reactions: Allergies Allergy/AdvReac Type Severity Reaction Status Date / Time No Known Allergies Allergy Verified 05/17/17 14:14 Home Medications: Ambulatory Orders Ibuprofen [Motrin -] 600 mg PO TID PRN #30 tablet 03/24/13 Levothyroxine [Synthroid -] 175 mcg PO DAILY 03/24/13 Diclofenac Sodium [Voltaren -] 75 mg PO BID PRN #20 tablet. 12/22/18 COPD: No Thyroid Disease: Yes (HYPOTHROIDISM) - Suicide/Smoking/Psychosocial Hx Smoking Status: No Smoking History: Former smoker Have you smoked in the past 12 months: No Number of Cigarettes Smoked Daily: 0 If you are a former smoker, when did you quit?: 10 YEARS AGO Hx Alcohol Use: No Drug/Substance Use Hx: No Review of Systems - Review of Systems Able to Perform ROS?: Yes Comments:: 12/21/18 23:16 All systems are reviewed and negative except as noted in the HPI *Physical Exam - Vital Signs Last Vital Signs Temp Pulse Resp BP Pulse Ox 98.1 F 78 16 150/95 100 12/21/18 22:12 12/21/18 22:12 12/21/18 22:12 12/21/18 22:12 12/21/18 22:12 - Physical Exam Comments: 12/21/18 23:17 GENERAL: Awake, alert, and fully oriented, in no acute distress HEAD: No signs of trauma EYES: PERRLA, EOMI, sclera anicteric, conjunctiva clear ENT: Auricles normal inspection, hearing grossly normal, nares patent, oropharynx clear without exudates. Moist mucosa NECK: Normal ROM, supple, no lymphadenopathy, JVD, or masses LUNGS: Breath sounds equal, clear to auscultation bilaterally. No wheezes, and no crackles HEART: Regular rate and rhythm, normal S1 and S2, no murmurs, rubs or gallops ABDOMEN: Soft, nontender, normoactive bowel sounds. No guarding, no rebound. No masses EXTREMITIES: +point tenderness over the left hip joint. Pain reproduced with left hip flexion and abduction. Normal range of motion, no edema. No clubbing or cyanosis. No cords, erythema NEUROLOGICAL: Cranial nerves II through XII grossly intact. Normal speech, normal gait SKIN: Warm, Dry, normal turgor, no rashes or lesions noted. 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 No previous history of this type of pain; she has been taking [id number] ibuprofen and naproxen without significant relief. She states that she has had some soreness of the left thigh today but no other distal pain/numbness/paresthesias or weakness. Exam is noted with point tenderness over the hip joint and reproduction of pain with movement of the hip. Plain film of the left hip and pelvis performed. Preliminary interpretation by me: No evidence of fracture/dislocation or other bony abnormality. Results discussed with the patient. Toradol 60 mg IM administered. 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 She should call the office on December 23 to arrange for follow-up within the next few days. Meanwhile, prescription for diclofenac 75 mg twice a day as needed taken with food, will be transmitted to her pharmacy. She should return to the emergency room if she has persistent severe pain or any progression of pain/numbness/paresthesias/weakness of the distal left leg *DC/Admit/Observation/Transfer Diagnosis at time of Disposition: Hip sprain Qualifiers: Encounter type: initial encounter Laterality: left Qualified Code(s): S73.102A - Unspecified sprain of left hip, initial encounter - Discharge Dispostion Disposition: HOME Condition at time of disposition: Stable - Prescriptions Prescriptions: Diclofenac Sodium [Voltaren -] 75 mg PO BID PRN #20 tablet.dr LOMBARDO Reason: Pain - Referrals Referrals: Fauzia Velazco MD [Primary Care Provider] - Dav Adair DO [Staff Physician] - - Patient Instructions Printed Discharge Instructions: DI for Hip Pain Additional Instructions: Diclofenac 75 mg twice a day as needed; take with food Avoid strenuous activity involving left hip until seen by orthopedist Call orthopedist office ([facility]) on December 23 to arrange for follow-up Return to ER if you have persistent, severe pain in hip or pain/numbness/ weakness in lower portion of your left leg - Post Discharge Activity
== END 2018-12-22 00:09 | disposition home or self-care (01) ==
LOC: FER 22:08
PROC: 3E0233Z Introduction of Anti-inflammatory into Muscle, Percutaneous Approach (ICD-10-PCS; principal; 2018-12-21)
DX: S73.102A Unspecified sprain of left hip, initial encounter (principal); Z87.891 Personal history of nicotine dependence; X58.XXXA Exposure to other specified factors, initial encounter; Y93.89 Activity, other specified; Y92.89 Other specified places as the place of occurrence of the external cause; E03.9 Hypothyroidism, unspecified
CPT/HCPCS: 73523-TC-FY; 99282-25

== ENCOUNTER 2021-08-10 09:36 | Observation (INO) | payer BC ==
[2021-08-10 09:58] VITALS: BMI 24.3
[2021-08-10 10:52] LABS: BASO % 1.4 % (0-2.0); EOS % 2.6 % (0-4.5); HEMATOCRIT 31.9 % (32.4-45.2); HEMOGLOBIN 10.1 GM/dL (10.7-15.3); LYMPH % 16.4 % (8-40); MCH 22.2 pg (25.7-33.7); MCHC 31.8 g/dl (32.0-36.0); MEAN CELL VOLUME 69.7 fl (80-96); MEAN PLT VOLUME 7.2 fl (7.5-11.1); MONO % 12.6 % (3.8-10.2); PLATELET COUNT 446 10^3/uL (134-434); RBC 4.57 M/mm3 (3.60-5.2); RDW 17.6 % (11.6-15.6); WHITE BLOOD COUNT 5.1 K/mm3 (4.0-10.0)
[2021-08-10 11:00] LABS: INR 1.18 (0.83-1.09); PROTHROMBIN TIME (PATIENT) 13.6 SEC (9.7-13.0)
[2021-08-10 11:03] LABS: ACTIVATED PTT 30.3 SECONDS (25.2-36.5)
[2021-08-10 11:14] LABS: ALBUMIN 4.2 g/dl (3.4-5.0); BLOOD UREA NITROGEN 12.4 mg/dL (7-18); CALCIUM 9.1 mg/dL (8.5-10.1)
[2021-08-10 11:17] LABS: CREATININE 0.7 mg/dL (0.55-1.3)
[2021-08-10 11:19] LABS: BILIRUBIN,TOTAL 0.9 mg/dL (0.2-1); TOT PROT 7.5 g/dl (6.4-8.2)
[2021-08-11] MEDS ORDERED: LEVOTHYROXINE NA 75 MCG TABLET (FP) ONE (06:25)
[2021-08-11] MEDS ORDERED: LEVOTHYROXINE NA 100 MCG TABLET (FP) ONE (06:25)
[2021-08-11] MEDS ORDERED: LEVOTHYROXINE 100 MCG, LEVOTHYROXINE 75 MCG PO SCH (07:00)
[2021-08-11 07:04] LABS: BASO % 1.4 % (0-2.0); EOS % 7.5 % (0-4.5); HEMATOCRIT 29.5 % (32.4-45.2); HEMOGLOBIN 9.8 GM/dL (10.7-15.3); LYMPH % 27.7 % (8-40); MCH 22.7 pg (25.7-33.7); MCHC 33.1 g/dl (32.0-36.0); MEAN CELL VOLUME 68.7 fl (80-96); MONO % 12.4 % (3.8-10.2); PLATELET COUNT 376 10^3/uL (134-434); RBC 4.29 M/mm3 (3.60-5.2); WHITE BLOOD COUNT 5.3 K/mm3 (4.0-10.0)
[2021-08-11 07:18] LABS: BLOOD UREA NITROGEN 10.8 mg/dL (7-18); MAGNESIUM 2.1 mg/dL (1.8-2.4)
[2021-08-11 07:19] LABS: ALBUMIN 3.6 g/dl (3.4-5.0)
[2021-08-11 07:22] LABS: CREATININE 0.7 mg/dL (0.55-1.3)
[2021-08-11 07:23] LABS: BILIRUBIN,TOTAL 0.3 mg/dL (0.2-1); TOT PROT 6.9 g/dl (6.4-8.2)
[2021-08-11] MEDS ORDERED: ASPIRIN 81 MG CHEWABLE TABLETS PO SCH (10:00)
[2021-08-11] MEDS ORDERED: IRON SUCROSE INJECTION 200 MG in SODIUM CHLORIDE 90 ML IVPB ONE (10:00)
[2021-08-11] MEDS ORDERED: PATIENT'S OWN MEDICATION (NON-FORMULARY) (Levothyroxine [Synthroid -] 175 MCG Tablet) PO SCH (10:00)
[2021-08-11 15:16] VITALS: BP 126/90; PULSE 82; TEMP 98.5
== END 2021-08-11 17:05 | disposition home or self-care (01) ==
LOC: JER 09:36 → JERBED 12:34 → J4W 08-11 03:58
PROVIDERS: ADMIT Internal Medicine; ATTEND Internal Medicine
PROC: 3E033GC Introduction of Other Therapeutic Substance into Peripheral Vein, Percutaneous Approach (ICD-10-PCS; principal; 2021-08-10)
DX: R07.89 Other chest pain (principal); E03.9 Hypothyroidism, unspecified; Z87.891 Personal history of nicotine dependence; Z86.16 Personal history of COVID-19; Z82.49 Family history of ischemic heart disease and other diseases of the circulatory system
CPT/HCPCS: 36415; 71046-TC-FY; 80053; 82728; 83036; 83540; 83550; 83735; 84443; 84484; 85025; 85379; 85610; 85730; 93005; 93010; 93306-TC; 93351; 96365; 99285-25; C9803-CS; G0378; J1756; U0003; U0005

== ENCOUNTER 2022-12-10 11:14 | Emergency (ER) | payer BC ==
[2022-12-10 11:25] VITALS: BMI 24.3
[2022-12-10 13:37] LABS: CALCIUM 9.1 mg/dL (8.5-10.1)
[2022-12-10 13:38] LABS: BASO % 1.3 % (0-2.0); BLOOD UREA NITROGEN 9.8 mg/dL (7-18); EOS % 3.1 % (0-4.5); HEMATOCRIT 33.5 % (32.4-45.2); HEMOGLOBIN 10.2 GM/dL (10.7-15.3); MCH 21.4 pg (25.7-33.7); MCHC 30.4 g/dl (32.0-36.0); MEAN CELL VOLUME 70.3 fl (80-96); MEAN PLT VOLUME 7.7 fl (7.5-11.1); MONO % 10.7 % (3.8-10.2); NEUT % 71.9 % (42.8-82.8); PLATELET COUNT 494 10^3/uL (134-434); RBC 4.77 M/mm3 (3.60-5.2); RDW 15.9 % (11.6-15.6); WHITE BLOOD COUNT 7.4 K/mm3 (4.0-10.0)
[2022-12-10 13:39] LABS: CREATININE 0.7 mg/dL (0.55-1.3)
[2022-12-10 13:42] LABS: BILIRUBIN,TOTAL 0.2 mg/dL (0.2-1); TOT PROT 7.5 g/dl (6.4-8.2)
[2022-12-10 14:15] VITALS: BP 110/75; PULSE 75; RESP 19; TEMP 98.6
[2022-12-10 14:23] LABS: ANISOCYTOSIS 2+; MACROCYTOSIS 0
== END 2022-12-10 14:15 | disposition home or self-care (01) ==
LOC: JER 11:14
DX: M25.512 Pain in left shoulder (principal); S46.912A Strain of unspecified muscle, fascia and tendon at shoulder and upper arm level, left arm, initial encounter; X58.XXXA Exposure to other specified factors, initial encounter
CPT/HCPCS: 36415; 71046-TC-FY; 73030-TC-LT-FY; 80053; 84484; 85025; 93005; 93010; 99285-25

== ENCOUNTER 2023-05-28 00:04 | Emergency (ER) | payer BC ==
[2023-05-28 00:12] VITALS: BP 154/96; PULSE 91; RESP 20; TEMP 97.6; BMI 24.7
[2023-05-28] MEDS ORDERED: SODIUM CHLORIDE 0.9% 500 ML INFUS.BAG IV ONE (00:34)
[2023-05-28] MEDS ORDERED: ONDANSETRON 4 MG/2 ML VIAL IVPUSH ONE (00:34)
[2023-05-28] MEDS ORDERED: ONDANSETRON 4 MG/2 ML VIAL ONE (01:20)
[2023-05-28 01:34] LABS: BASO % 0.6 % (0-2.0); HEMOGLOBIN 10.2 GM/dL (10.7-15.3); LYMPH % 8.9 % (8-40); MCH 22.1 pg (25.7-33.7); MCHC 30.8 g/dl (32.0-36.0); MEAN CELL VOLUME 71.9 fl (80-96); MEAN PLT VOLUME 7.1 fl (7.5-11.1); MONO % 10.3 % (3.8-10.2); NEUT % 79.2 % (42.8-82.8); PLATELET COUNT 425 10^3/uL (134-434); RBC 4.59 M/mm3 (3.60-5.2); WHITE BLOOD COUNT 12.2 K/mm3 (4.0-10.0)
[2023-05-28 01:50] LABS: POTASSIUM 4.4 mmol/L (3.5-5.1)
[2023-05-28 01:52] LABS: ALBUMIN 3.9 g/dl (3.4-5.0); CALCIUM 8.8 mg/dL (8.5-10.1); MAGNESIUM 2.2 mg/dL (1.8-2.4)
[2023-05-28 01:57] LABS: BILIRUBIN,TOTAL 0.1 mg/dL (0.2-1); TOT PROT 7.5 g/dl (6.4-8.2)
[2023-05-28] MEDS ORDERED: FAMOTIDINE 20 MG/50 ML IVPB 50 ML IVPB ONE (03:55)
[2023-05-28] MEDS ORDERED: FAMOTIDINE 20 MG/50 ML IVPB 20 MG/50 ML MG IVPB ONE ×2 (04:08→04:19)
== END 2023-05-28 04:40 | disposition home or self-care (01) ==
LOC: JER 00:04
PROC: 3E033GC Introduction of Other Therapeutic Substance into Peripheral Vein, Percutaneous Approach (ICD-10-PCS; principal; 2023-05-28)
PROC: 3E033GC Introduction of Other Therapeutic Substance into Peripheral Vein, Percutaneous Approach (ICD-10-PCS; 2023-05-28)
DX: R55 Syncope and collapse (principal); R42 Dizziness and giddiness; R11.2 Nausea with vomiting, unspecified; A05.9 Bacterial foodborne intoxication, unspecified; Z20.822 Contact with and (suspected) exposure to COVID-19
CPT/HCPCS: 0241U-QW; 36415; 71046-TC-FY; 80053; 82962; 83735; 84484; 84703; 85025; 93005; 93010; 99285-25